=== PATIENT | female | born 1975 | race Caucasian/White ===

== ENCOUNTER 2019-01-22 12:41 | Emergency (ER) | payer OTHER ==
[~2019-01-22] VITALS: Ht 170.2 cm; Wt 72.7 kg
--- NOTE | 2019-01-22 13:18 | NUR ---
TELE NEURO INITIATED
[2019-01-22 13:19] LABS: BASOPHILS % (AUTO) 0.5 % (0-1); EOSINOPHILS % (AUTO) 0.3 % (0-6); HEMATOCRIT 36.2 % (35.0-45.0); HEMOGLOBIN 12.3 g/dl (12.0-16.0); LYMPHOCYTES # (AUTO) 1.3 X10'3 (1.1-4.8); LYMPHOCYTES % (AUTO) 12.9 % (21-51); MEAN CORPUSCULAR HEMOGLOBIN 32.6 PG (27.0-31.0); MEAN CORPUSCULAR VOLUME 95.8 FL (78-98); MEAN PLATELET VOLUME 7.4 FL (7.4-10.4); MONOCYTES # (AUTO) 0.4 X10'3 (0-0.9); MONOCYTES % (AUTO) 3.7 % (2-12); NEUTROPHILS # (AUTO) 8.4 X10'3 (1.8-7.7); NEUTROPHILS % (AUTO) 82.6 % (42-75); PLATELET COUNT 231 X10'3 (140-440); RED BLOOD COUNT 3.78 X10'6 (4.20-5.60); RED CELL DISTRIBUTION WIDTH 12.9 % (11.5-14.5); WHITE BLOOD COUNT 10.2 X10'3 (4.5-11.0)
--- NOTE | 2019-01-22 13:28 | NUR ---
INITIATED IV FOR PRIMARY NURSE DEREJE RANDHAWA STROKE NURSE AT [facility] WITH [facility] NOW.
[2019-01-22 13:30] LABS: PARTIAL THROMBOPLASTIN TIME 23 SECONDS (22-32)
[2019-01-22 13:33] LABS: GLUCOSE 159 MG/DL (70-104); POTASSIUM 3.7 MMOL/L (3.5-5.1); SODIUM 140 MMOL/L (135-145)
[2019-01-22 13:34] LABS: ALANINE AMINOTRANSFERASE 46 U/L (12-78); ALBUMIN 3.6 G/DL (3.4-5.0); ALKALINE PHOSPHATASE 50 IU/L (46-116); ANION GAP 12 (8-16); ASPARTATE AMINO TRANSFERASE 25 U/L (10-37); BILIRUBIN,TOTAL 0.5 MG/DL (0.1-1.0); BLOOD UREA NITROGEN 17 MG/DL (7-18); CALCIUM 8.4 MG/DL (8.5-10.1); CHLORIDE 106 MMOL/L (99-107); TOTAL CARBON DIOXIDE 22.4 MMOL/L (24-32); TOTAL PROTEIN 7.3 G/DL (6.4-8.2); eGFR 61 ML/MIN
[2019-01-22 13:38] LABS: TROPONIN I < 0.04 NG/ML (0.0-0.05)
[2019-01-22] MEDS ORDERED: LORazepam 2 mg/ml vial IV ONE (14:05)
[2019-01-22] MEDS ORDERED: morphine 4 MG/ML inj SYRINge IV ONE (14:05)
[2019-01-22] MEDS ORDERED: proCHLORperazine 10 MG/2 ml inj IV ONE (14:05)
[2019-01-22] MEDS ORDERED: normal saline 1000ML IV soln IVB ONE (14:05)
--- NOTE | 2019-01-22 14:44 | NUR ---
PT MRI CHECKLIST FAXED TO MRI DEPT.
[2019-01-22 16:27] VITALS: BP 136/72
== END 2019-01-22 16:23 | disposition home or self-care (01) ==
LOC: ER 12:42
DX: G43.109 Migraine with aura, not intractable, without status migrainosus (principal); E78.00 Pure hypercholesterolemia, unspecified; I10 Essential (primary) hypertension; Z88.2 Allergy status to sulfonamides
CPT/HCPCS: 36415; 70450; 70551; 71045; 80053; 84484; 85025; 85610; 85730; 93005; 96374; 96375; 99284; J0780; J2060; J2270; J7030